=== PATIENT | male | born 1995 | race Caucasian/White ===

== ENCOUNTER 2019-08-20 17:18 | Emergency (ER) | payer SELFPAY ==
[~2019-08-20] VITALS: Ht 193 cm; Wt 113.6 kg
[2019-08-20] MEDS ORDERED: BICT1TAB PO (17:35)
[2019-08-20] MEDS ORDERED: SULF1TAB41 PO (17:38)
[2019-08-20 19:48] VITALS: BP 123/84
== END 2019-08-20 19:51 | disposition home or self-care (01) ==
LOC: EMS 17:20
DX: K64.8 Other hemorrhoids (principal); F17.210 Nicotine dependence, cigarettes, uncomplicated